=== PATIENT | male | born 1990 | race Two or more races ===

== ENCOUNTER 2017-02-25 04:05 | Emergency (ER) | payer SELFPAY ==
[2017-02-25 04:12] VITALS: BP 126/73; PULSE 65; RESP 18; TEMP 97.6; O2SAT 98
--- NOTE | 2017-02-25 04:22 | ED PDOC ---
HPI: Psych/Substance Abuse Time Seen by Provider: 02/25/17 04:09 Chief Complaint (Nursing): Alcohol Ingestion History Per: EMS, Other ([place] [facility]) Additional Complaint(s): As per [facility] pt. was found sleeping on a bench outside and was difficult to arouse. Pt. admits to drinking alcohol. Offers no complaints. Past Medical History Reviewed: Historical Data, Nursing Documentation, Vital Signs Vital Signs: Last Vital Signs Temp 97.6 F 02/25/17 04:09 Pulse 65 02/25/17 04:09 Resp 18 02/25/17 04:09 BP 126/73 02/25/17 04:09 Pulse Ox 98 02/25/17 04:09 - Family History Family History: States: No Known Family Hx - Allergies Allergies/Adverse Reactions: Allergies Allergy/AdvReac Type Severity Reaction Status Date / Time No Known Allergies Allergy Verified 02/25/17 04:09 Review of Systems ROS Statement: Except As Marked, All Systems Reviewed And Found Negative Physical Exam - Reviewed Nursing Documentation Reviewed: Yes Vital Signs Reviewed: Yes - Physical Exam Appears: Positive for: Well, Non-toxic, No Acute Distress Head Exam: Positive for: ATRAUMATIC, NORMAL INSPECTION, NORMOCEPHALIC Skin: Positive for: Normal Color, Warm. Negative for: Rash Eye Exam: Positive for: EOMI, Normal appearance, PERRL ENT: Positive for: Normal ENT Inspection Neck: Positive for: Normal, Painless ROM Cardiovascular/Chest: Positive for: Regular Rate, Rhythm Respiratory: Positive for: CNT, Normal Breath Sounds Gastrointestinal/Abdominal: Positive for: Normal Exam, Bowel Sounds, Soft. Negative for: Tenderness Back: Positive for: Normal Inspection Extremity: Positive for: Normal ROM Neurologic/Psych: Positive for: Alert, Oriented, Other (slurred speech, AOB). Negative for: Aphasia, Facial Droop - Laboratory Results Result Diagrams: 02/25/17 05:15 02/25/17 05:15 - ECG O2 Sat by Pulse Oximetry: 98 - Progress ED Course And Treament: Pt. became hostile during HPI and began cursing at staff. Attempted to leave ED. Restraints ordered. Ativan 2mg IM ordered. Disposition - Clinical Impression Clinical Impression: Alcohol intoxication - Patient ED Disposition Is Patient to be Admitted: Transfer of Care (Signed out to Dr. Bailey pending sobriety) - Disposition Disposition Time: 06:02 Condition: STABLE Forms: [facility] (Turkmen)
[2017-02-25 05:28] LABS: BASO # 0.1 K/uL (0.0-0.2); EOS # 0.3 K/uL (0.0-0.7); EOS % 5.6 % (0.0-4.0); LYMPH # 2.2 K/uL (1.0-4.3); LYMPH % 48.9 % (20.0-40.0); MEAN CELL VOLUME 93.4 fl (80.0-94.0); MEAN CORPUSCULAR HEMOGLOBIN 31.7 pg (27.0-31.0); MEAN CORPUSCULAR HGB CONC 33.9 g/dL (33.0-37.0); MEAN PLATELET VOLUME 7.8 fl (7.2-11.7); MONO # 0.4 K/uL (0.0-0.8); MONO % 8.2 % (0.0-10.0); NEUT # 1.6 K/uL (1.8-7.0); NEUT % 35.3 % (50.0-75.0); NRBC % 0.1 % (0.0-0.0); RED CELL DISTRIBUTION WIDTH 12.7 % (11.5-14.5); WHITE BLOOD COUNT 4.5 K/uL (4.8-10.8)
[2017-02-25 05:33] LABS: ALB/GLOB RATIO 1.3 (1.0-2.1); ALCOHOL SERUM 214 mg/dl (0-10); ALKALINE PHOSPHATASE 38 U/L (38-126); ALT/SGPT 32 U/L (21-72); AST/SGOT 42 U/L (17-59); BILIRUBIN,TOTAL 0.2 mg/dl (0.2-1.3); BLOOD UREA NITROGEN 12 mg/dl (9-20); CARBON DIOXIDE 27 mmol/L (22-30); CHLORIDE 107 mmol/L (98-107); GFR AFRICAN-AMERICAN > 60; GLUCOSE,RANDOM 103 mg/dL (75-110); POTASSIUM 3.9 MMOL/L (3.6-5.0); SODIUM 146 mmol/l (132-148)
--- NOTE | 2017-02-25 06:32 | ED PDOC ---
- Laboratory Results Result Diagrams: 02/25/17 05:15 02/25/17 05:15 - ECG O2 Sat by Pulse Oximetry: 98 Pulse Ox Interpretation: Normal Medical Decision Making Medical Decision Makin Pt. signed out to me by JENNY Bardales pending sobriety. [address] out [address] Pryor pending sobriety. Pt. stable. Disposition - Clinical Impression Clinical Impression: Alcohol intoxication - POA Present On Arrival: None - Disposition Disposition: Transfer of Care Disposition Time: 07:00 Condition: STABLE Forms: [facility] (Micronesian) Patient Signed Over To: Noemy Pryor Handoff Comments: pending sobriety
--- NOTE | 2017-02-25 07:13 | ED PDOC ---
- Laboratory Results Result Diagrams: 02/25/17 05:15 02/25/17 05:15 - ECG O2 Sat by Pulse Oximetry: 98 Medical Decision Making Medical Decision Makin:00 Patient signed out to me by Dr. Bailey pending medical sobriety. 10:36 Patient is alert and oriented x3, has steady gait. Patient denies any complaints and is stable for discharge home. Clinical Impression: Alcohol Intoxication Scribe Attestation: Documented by Tamia Zaidi, acting as a scribe for Noemy Pryor MD. Provider Scribe Attestation: All medical record entries made by the Scribe were at my direction and personally dictated by me. I have reviewed the chart and agree that the record accurately reflects my personal performance of the history, physical exam, medical decision making, and the department course for this patient. I have also personally directed, reviewed, and agree with the discharge instructions and disposition. Disposition - Clinical Impression Clinical Impression: Alcohol intoxication - POA Present On Arrival: None - Disposition Referrals: [facility] [Outside] Disposition: Routine/Home Disposition Time: 10:36 Condition: IMPROVED Instructions: Alcohol Intoxication (ED) Forms: [facility] (Belarusian)
== END 2017-02-25 11:11 | disposition home or self-care (01) ==
LOC: H.ER 04:05
DX: F10.129 Alcohol abuse with intoxication, unspecified (principal)
CPT/HCPCS: 80053; 82948; 85025; 96372; 99284; G0480; J2060